=== PATIENT | female | born 1985 | race Caucasian/White ===

== ENCOUNTER 2025-03-31 14:51 | Outpatient (CLI) | payer BC, SELFPAY ==
--- NOTE | ~2025-03-31 | MM_ITS ---
EXAMINATION: MM screening nhi BI w zacarias HISTORY: Screening TECHNIQUE: Craniocaudal and mediolateral oblique 3-D tomosynthesis images were obtained and synthetic 2-D images were generated. CAD analysis was submitted and interpreted. COMPARISON: No prior mammogram is available for comparison at this institution. BREAST PARENCHYMAL COMPOSITION: The breasts are extremely dense, which lowers the sensitivity of mammography. FINDINGS: There is no evidence of suspicious mass, calcification, or architectural distortion to suggest malignancy. Asymmetry in the upper right breast, posterior depth, seen in the right MLO projection. Asymmetry in the upper left breast, middle depth, seen in the left MLO projection. In addition, there is an asymmetry in the inner left breast, middle depth, seen in the left CC projection. IMPRESSION: 1. Asymmetry in the upper right breast, posterior depth, seen in the right MLO projection. The study is incomplete. A diagnostic mammogram and a diagnostic ultrasound are recommended. 2. Asymmetry in the upper left breast, middle depth, seen in the left MLO projection. In addition, there is an asymmetry in the inner left breast, middle depth, seen in the left CC projection. The study is incomplete. A diagnostic mammogram and a diagnostic ultrasound are recommended. BI-RADS 0: Incomplete-Need additional imaging evaluation. Reviewed, dictated and finalized at location Q. IMPRESSION: 1. Asymmetry in the upper right breast, posterior depth, seen in the right MLO projection. The study is incomplete. A diagnostic mammogram and a diagnostic ul trasound are recommended. 2. Asymmetry in the upper left breast, middle depth, seen in the left MLO proje ction. In addition, there is an asymmetry in the inner left breast, middle dep th, seen in the left CC projection. The study is incomplete. A diagnostic mammo gram and a diagnostic ultrasound are recommended. BI-RADS 0: Incomplete-Need additional imaging evaluation.
--- OUTSIDE RECORDS SUMMARY | 2025-03-31 17:20 | XMS_ITS | Clinical Summary ---
Author Organization [facility] [address] Address [address] [place] [address] Care Team Providers Care Air Brush Artist Name Role Phone Marietta Gauthier MD Primary Care Provider Allergies No known active allergies Medications No known medications Active Problems No known active problems Immunizations Immunization Administration Dates Next Due Tdap 07/09/2010 Family History Medical History Relation Name Comments Other Father 2 internal bleedi ng; Cause of : internal bleeding Diabetes type II Maternal Grandfather 2 D iabetes -Type 2; Other Maternal Grandfather 2 Alive and well; Prostate cancer Maternal Grandfather 2 Ca ncer -prostate; Cause of : Cancer -prostate Other Mother 2 Alive and well; Relation Name Status Comments Father 1 (Age 58) Father 2 Maternal Grandfather 1 (Age 75) Maternal Grandfather 2 Mother 1 Alive Mother 2 Social History Tobacco Use Types Packs/Day Years Used Date Smoking Tobacco: Never Assessed Alcohol Use Standard Drinks/Week Comments Yes 0 (1 standard drink = 0.6 oz pur e alcohol) Comments Unknown Sex and Gender Information Value Date Recorded Sex Assigned at Not on file Legal Sex Female 1:51 AM HORTICULTURAL NURSERY ASSISTANT Gender Identity Not on file Sexual Orientation Not on file Obstetrics History Last Filed Vital Signs Vital Sign Reading Time Taken Comments Blood Pressure 152/98 09/04/2022 6:55 PM HORTICULTURAL NURSERY ASSISTANT Pulse 92 09/04/2022 6:55 PM HORTICULTURAL NURSERY ASSISTANT Temperature 37.2 C (99 F) 09/04/2022 6:55 PM HORTICULTURAL NURSERY ASSISTANT Respiratory Rate 16 09/04/2022 6:55 PM HORTICULTURAL NURSERY ASSISTANT Oxygen Saturation 96% 09/04/2022 6:55 PM HORTICULTURAL NURSERY ASSISTANT Inhaled Oxygen Concentration - - Weight 91.2 kg (201 lb) 09/04/2022 6:55 PM HORTICULTURAL NURSERY ASSISTANT Height 167.6 cm (5' 6) 09/04/2022 6:55 PM HORTICULTURAL NURSERY ASSISTANT Body Mass Index 32.44 09/04/2022 6:55 PM HORTICULTURAL NURSERY ASSISTANT Plan of Treatment Health Maintenance Due Date Last Done Comments Breast Cancer Screening-Mammogram 1984 Cervical Cancer Screening 1984 Depression Screening 1984 Hepatitis C Screening 1984 Varicella Vaccines (1 of 2 - 13+ 2-dose series) 1997 Hepatitis B Screening 2002 Regular Well Visit/Exam 18-64 2002 HPV Vaccines (1 - 3-dose SCD M series) 2011 Covid-19 Vaccine ( - 2024-2 6 season) 2025 05/27/2021, 09/30/2020, 09/07/2020 Influenza Vaccine (#1) 2025 7, 03/26/2017 DTaP/Tdap/Td Vaccine (3 - Td or Tdap) 03/15/2026 03/15/2016, 07/09/2010 Pneumococcal vaccine <65 Aged Out No longer eligible based on patient's age to complete this topic Insurance [facility] CHO[facility] PL[facility] PL[facility] Care Teams Air Brush Artist Relationship Specialty Start [place] [address] [id number] PCP - General 02/27/11
--- OUTSIDE RECORDS SUMMARY | 2025-03-31 17:20 | XMS_ITS | Clinical Summary ---
Author Organization [facility] Address [address] [facility] [place] [address] Phone Care Team Providers Care Doctor Of Osteopathy Name Role Phone Rosie Araujo DO Primary Care Provider [phone] Allergies No known active allergies Medications No known medications Active Problems No known active problems Immunizations Immunization Administration Dates Next Due (ADACEL/BOOSTRIX)(10 YR UP) TDAP VACCINE, 0.5ML, IM 03/15/2016 INFLUENZA VACCINE QUADRIVALENT 6 MOS UP PF IM Family History Medical History Relation Name Comments High Cholesterol Brother Diabetes Maternal Grandfather Lung Cancer Mother Other Mother COPD--emphysema Breast Cancer Neg Hx Colon Cancer Neg Hx Ovarian Cancer Neg Hx Relation Name Status Comments Brother Alive Father Maternal Grandfather Maternal Grandmother Mother Alive Paternal Grandfather Paternal Grandmother Social History Tobacco Use Types Packs/Day Years Used Date Smoking Tobacco: Never Smokeless Tobacco: Never Alcohol Use Standard Drinks/Week Comments Yes 4 (1 standard drink = 0.6 oz pur e alcohol) occasional Comments No Sex and Gender Information Value Date Recorded Sex Assigned at Not on file Legal Sex Female 1:14 PM CDT Gender Identity Not on file Sexual Orientation Not on file Last Filed Vital Signs Vital Sign Reading Time Taken Comments Blood Pressure 122/84 05/24/2019 1:15 PM MOLDED GOODS OPERATOR Pulse 75 05/24/2019 1:15 PM MOLDED GOODS OPERATOR Temperature 36.4 C (97.5 F) 05/24/2019 1:15 PM MOLDED GOODS OPERATOR Respiratory Rate - - Oxygen Saturation 98% 05/24/2019 1:15 PM MOLDED GOODS OPERATOR Inhaled Oxygen Concentration - - Weight 94.3 kg (208 lb) 05/24/2019 1:15 PM MOLDED GOODS OPERATOR w ith shoes Height 167.6 cm (5' 6) 02/15/2019 10:04 AM CDT Body Mass Index 33.57 02/15/2019 10:04 AM CDT Plan of Treatment Health Maintenance Due Date Last Done Comments HEPATITIS B VACCINES (1 of 3 - 19+ 3-dose series) 2003 HPV VACCINES (1 - 3-dose SCD M series) 2011 PAP SMEAR 01/05/2022 01/05/2019, 01/01/2016 CERVICAL CANCER SCREENING 01/06/2024 HPV/Cotest (21-29) 01/06/2024 01/05/2019, 01/01/2016 HPV/Cotest (30-65) 01/06/2024 01/05/2019, 01/01/2016 BREAST CANCER SCREENING 2024 11/22/2015 Preventative Visit- Commercial 07/07/2024 0 01/05/2019, 03/03/2018, 03/26/2017, Additional history exists INFLUENZA VACCINE (#1) 2025 04/12/2020, 2016 DTAP/TDAP/TD VACCINES (2 - T d or Tdap) 03/15/2026 03/15/2016 Procedures Procedure Name Priority Date/Time Associated Diagnosis Comments CERV/VAG CYTO AGE BASED SCREEN PAP Routine 01/05/2019 11:26 AM CDT Screening for cervical cancer MAMMO DIAGNOSTIC BILATERAL W OR WO CAD Routine 11/22/2015 10:48 AM CDT Breast lump on left side at 8 o'clock position from Last 3 Months or Most Recently Relevant to Health Maintenance Results * CERV/VAG CYTO AGE BASED SCREEN PAP (01/05/2019 11:26 AM CDT) COMMENT (PAP): SEE COMMENT 9 5:33 PM CDT [facility] Comment: This order for age-based cervical cancer and STI screening follows ACOG guidelines(PB 168, 140, QNA467). See individual assays for performing site location. CLINICAL INFORMATION Information not provided 01/12/2019 5:33 PM CDT [facility] LAST MENSTRUAL PERIOD INFORMATION NOT PROVIDED 01/12/2019 5:33 PM CDT [facility] PREV PAP: INFORMATION NOT PROVIDED 01/12/2019 5:33 PM CDT [facility] PREV BX: INFORMATION NOT PROVIDED 01/12/2019 5:33 PM CDT [facility] SOURCE Endocervix 01/12/2019 5:33 PM CDT [facility] ADEQUACY: SEE COMMENT 01/12/2019 5:33 PM CDT [facility] Comment: Satisfactory for evaluation. Endocervical/transformation zone component present. Age and/or menstrual status not provided PAP INTERP Negative for intraepithelial lesion or malignancy. 01/12/2019 5:33 PM CDT [facility] COMMENT This Pap test has been evaluated with computer assisted technology. 01/12/2019 5:33 PM CDT [facility] IMAGING NURSE: NICK SCHNEIDER(ASCP) 03/2019 5:33 PM CDT [facility] EXPLANATORY NOTE SEE COMMENT 019 5:33 PM CDT [facility] Comment: EXPLANATORY NOTE: The Pap is a screening test for cervical cancer. It is not a diagnostic test and is subject to false negative and false positive results. It is most reliable when a satisfactory sample, regularly obtained, is submitted with relevant clinical findings and history, and when the Pap result is evaluated along with historic and current clinical information. HPV E6/E7 Not Detected Not Detected 01/12/2019 5:33 PM CDT [facility] Comment: This test was performed using the APTIMA HPV Assay ([employer] This assay detects E6/E7 viral messenger RNA (mRNA) from 14 high-risk HPV types (16,18,31,33,35,39,45,51,52,56,58,59,66,68). The analytical performance characteristics of this assay have been determined by [facility]. The modifications have not been cleared or approved by the FDA. This assay has been validated pursuant to the CLIA regulations and is used for clinical purposes. Genital SWAB OF ENDOCERVIX / Unknown Collection / Unknown 01/05/2019 11:26 AM CDT 01/05/2019 7:19 PM CDT Narrative [facility] - 01/12/2019 5:33 PM CDT Performing Organization Information: Site ID: [id number] Name: [facility] Address: [address] [address] Director: Cristhian Stone D.O., MPH Site ID: [id number] [facility] Address: [address] [address] Director: Antonietta Person us Carole Gispon DO PATHOLOGY/CYTOLOGY ORDERABL ES Final Result [facility] [phone] * (ABNORMAL) MAMMO DIGITAL DIAG BILAT (11/22/2015 10:48 AM CDT) Anatomical Region Laterality Modality Breast Bilateral Mammography 11/22/2015 10:4 8 AM CDT Impressions 11/22/2015 5:00 PM CDT IMPRESSION: 1. The palpable lesion within the left breast corresponds to a solid mass and has characteristics suggestive of a fibroadenoma. Recommend ultrasound-guided core biopsy. 2. These findings were discussed with the patient on the day of examination. Narrative 11/22/2015 5:00 PM CDT BILATERAL DIGITAL DIAGNOSTIC MAMMOGRAM WITH CAD AND LEFT LIMITED BREAST ULTRASOUND DATE: 11/22/2015 10:48 AM INDICATION: Breast lump on left side at 8:00 position . TECHNIQUE: Diagnostic digital mammograms of the bilateral breasts were performed on a digital system. CAD was utilized. In addition, a targeted ultrasound of the left breast was performed. COMPARISON: None, baseline study BREAST COMPOSITION: Heterogeneously dense, which limits the sensitivity of mammography FINDINGS: Mammogram: A metallic marker indicates the site of a palpable abnormality within the lower inner quadrant of the left breast. The palpable abnormality corresponds to a circumscribed mass measuring 2.3 cm centered approximately 5.4 cm from the nipple on the MLO projection. No concerning microcalcifications are identified. The remainder of the left breast and the contralateral right breast are unremarkable. CAD was utilized. Ultrasound: Targeted ultrasound of the left breast was performed in the region of the palpable abnormality. Within the left breast at the 7:00 to 8:00 position, there is a circumscribed, homogeneous hypoechoic mass with internal blood flow measuring 1.8 x 1.0 x 2.2 cm. OVERALL ASSESSMENT: BI-RADS Category 4: Suspicious findings Procedure Note Fabricio Leyva MD - 11/22/2015 BILATERAL DIGITAL DIAGNOSTIC MAMMOGRAM WITH CAD AND LEFT LIMITED BREAST ULTRASOUND DATE: 11/22/2015 10:48 AM INDICATION: Breast lump on left side at 8:00 position . TECHNIQUE: Diagnostic digital mammograms of the bilateral breasts were performed on a digital system. CAD was utilized. In addition, a targeted ultrasound of the left breast was performed. COMPARISON: None, baseline study BREAST COMPOSITION: Heterogeneously dense, which limits the sensitivity of mammography FINDINGS: Mammogram: A metallic marker indicates the site of a palpable abnormality within the lower inner quadrant of the left breast. The palpable abnormality corresponds to a circumscribed mass measuring 2.3 cm centered approximately 5.4 cm from the nipple on the MLO projection. No concerning microcalcifications are identified. The remainder of the left breast and the contralateral right breast are unremarkable. CAD was utilized. Ultrasound: Targeted ultrasound of the left breast was performed in the region of the palpable abnormality. Within the left breast at the 7:00 to 8:00 position, there is a circumscribed, homogeneous hypoechoic mass with internal blood flow measuring 1.8 x 1.0 x 2.2 cm. OVERALL ASSESSMENT: BI-RADS Category 4: Suspicious findings IMPRESSION IMPRESSION: 1. The palpable lesion within the left breast corresponds to a solid mass and has characteristics suggestive of a fibroadenoma. Recommend ultrasound-guided core biopsy. 2. These findings were discussed with the patient on the day of examination. Susy Limon NP MAMMO ORDERABLES Final Res ult from Last 3 Months or Most Recently Relevant to Health Maintenance Insurance [facility]IONS PPO [id number] Care Teams Doctor Of Osteopathy Relationship Specialty [place] [address] [facility] [address] [place] [address] PCP - General Family Practice 03/15/16
--- OUTSIDE RECORDS SUMMARY | 2025-03-31 17:20 | XMS_ITS | Clinical Summary ---
Author Organization [facility] Address [address] [place] [id number] Care Team Providers Care Return Clerk Name Role Phone Frandy Cao MD Primary Care Provider [phone] Allergies No known active allergies Medications No known medications Immunizations Immunization Administration Dates Next Due Influenza Adult (Generic) 03/26/2017 Tdap (Generic) 03/15/2016 Family History Medical History Relation Comments Lung Cancer Mother Relation Status Comments Father Mother Social History Tobacco Use Types Packs/Day Years Used Date Smoking Tobacco: Never Smokeless Tobacco: Never Alcohol Use Standard Drinks/Week Comments Yes 0 (1 standard drink = 0.6 oz pur e alcohol) every 2 weeks Comments Unknown Sex and Gender Information Value Date Recorded Sex Assigned at Not on file Legal Sex Female 2:05 PM CDT Gender Identity Not on file Sexual Orientation Not on file Last Filed Vital Signs Vital Sign Reading Time Taken Comments Blood Pressure 120/70 04/05/2022 1:36 PM CDT Pulse 60 04/05/2022 1:36 PM CDT Temperature 36.4 C (97.5 F) 04/05/2022 1:36 PM CDT Respiratory Rate 20 04/05/2022 1:36 PM CDT Oxygen Saturation 98% 04/05/2022 1:36 PM CDT Inhaled Oxygen Concentration - - Weight 89.8 kg (198 lb) 04/05/2022 1:36 PM CDT Height - - Body Mass Index - - Plan of Treatment Health Maintenance Due Date Last Done Comments Annual Physical 1987 Hepatitis C 2002 Hepatitis B Vaccines (1 of 3 - 19+ 3-dose series) 2003 HPV Vaccines (1 - 3-dose SCD M series) 2011 Mammogram Screening 2024 COVID-19 Vaccine (4 - 2024-2 6 season) 2025 05/27/2021, 09/30/2020, 09/07/2020 Cervical Cancer Screening Pa p Smear (Age 30 to 64) Every 3 Years 04/05/2025 04/05/2022 DTaP, Tdap and Td Vaccines ( 2 - Td or Tdap) 03/15/2026 03/15/2016 Cervical Cancer Screening Pa p with HPV Testing (Age 30 to 64) Every 5 Years 04/05/2027 04/05/2022 Cervical Cancer Screening wi th HPV 04/05/2027 Meningococcal B Vaccine Aged Out No l onger eligible based on patient's age to complete this topic Meningococcal Vaccine Aged Out No ioana james eligible based on patient's age to complete this topic Pneumococcal Vaccine: Pediatrics (0 to 5 Years) and At-Risk Patients (6 to 49 Years) Aged Out No longer eligible b ased on patient's age to complete this topic RSV Immunizations Under 20 Months Aged Out No longer eligible b ased on patient's age to complete this topic Procedures Procedure Name Priority Date/Time Associated Diagnosis Comments HUMAN PAPILLOMAVIRUS, HIGH-RISK TYPES Routine 04/05/2022 12:00 PM CDT CYTOPATH CERV/VAG THIN LAYER Routine 04/05/2022 10:01 AM CDT from Last 3 Months or Most Recently Relevant to Health Maintenance Results * HUMAN PAPILLOMAVIRUS, HIGH-RISK TYPES (04/05/2022 12:00 PM CDT) SPEC DESCRIPTION CERVICAL/END OCERVICAL 04/08/2022 10:24 AM CDT [facility] HPV DNA HIGH RISK NEGATIVE NEGATIVE 04/08/2022 2:36 PM CDT [facility] Comment:SEE CYTOLOGY REPORT 04/05/2022 12:0 0 PM CDT us Flor Bianchi MD PATHOLOGY/CYTOLOGY ORDERAB LES Final Result [facility] [address] [place] [address], * Cytopath Cerv/Vag Thin Layer (04/05/2022 10:01 AM CDT) THIN PREP PAP [facility] [address] [place] [address] Department of Pathology Pathology Report CERVICAL/VAGINAL PAP SMEAR REPORT Name: SUAD CAMPO Age: 9 1985 (Age: 37) Location: [facility] Sex: F Collected Date: 04/05/2022 [facility] #: [id number] Date Received: 04/08/2022 Date Reported: 04/11/2022 Provider: FLOR CAMPBELL MD INTERPRETATION CERVICAL/ENDOCERVI MIKY: SATISFACTORY FOR EVALUATION. ENDOCERVICAL/TRANS FORMATION ZONE COMPONENT PRESENT. NEGATIVE FOR INTRAEPITHELIAL LESION OR MALIGNANCY. NEGATIVE FOR HIGH RISK HPV. The FDA approved Aptima HPV assay is an in vitro nucleic acid amplification test for the qualitative detection of E6/E7 viral messenger RNA (mRNA) from 14 high-risk types of human papillomavirus (HPV) in cervical specimens. The high-risk HPV types detected by the assay include: 16,18,31,33,35,39, 45,51,52,56,58,59, 66, and 68. Electronically Signed Out By NICK Brown (ASCP) CLINICAL HISTORY Z12.4 SCREENING PAP TEST ThinPrep Pap Test with screening HR HPV testing requested, with reflex HPV 16/18 genotyping on negative cytology, positive HR HPV Date of Last Menstrual Period: 04/01/22 Menstrual Status: Regular SPECIMEN SUBMITTED CERVICAL/ENDOCERVI MIKY Specimen Received:1 Thin Prep Vial, Image Assisted Pap (SMD) Please note: The Pap smear is not a diagnostic test. It is a screening test. Negative results on combined screening (Pap test and HPV-DNA) have a high negative predictive value (99.1-100 percent) for cervical cancer. The pap test is not effective in detecting cervical adenocarcinoma. [facility] 04/05/2022 10:0 1 AM CDT 04/08/2022 10:01 AM CDT Comment:CERVICAL/ENDOCERVICA L Flor Bianchi MD PATHOLOGY/CYTOLOGY ORDERAB LES Final Result [facility] [address] [place] [id number], from Last 3 Months or Most Recently Relevant to Health Maintenance Insurance [facility] Care Teams Return Clerk Relationship Specialty Start Date End Date Frandy Cao MD PCP - General INTERNAL MEDICINE 04/05/22
== END 2025-03-31 14:52 | disposition home or self-care (01) ==
LOC: ANHFOHIMG 14:52
PROVIDERS: PCP Emergency Medicine; Visit Provider Nurse Practitioner Obstetrics & Gynecology
DX: Z12.31 Encounter for screening mammogram for malignant neoplasm of breast (principal); R92.8 Other abnormal and inconclusive findings on diagnostic imaging of breast
CPT/HCPCS: 77063; 77067

== ENCOUNTER 2025-05-27 10:54 | Outpatient (CLI) | payer BC, SELFPAY ==
--- NOTE | ~2025-05-27 | MMUS_ITS ---
EXAMINATION: MM diagnostic nhi BI w zacarias, US breast LT limited INDICATION: 40-year old female; BI-RADS 0, callback from screening to evaluate bilateral breast asymmetries. COMPARISON: 03/31/2025 TECHNIQUE: Digital breast tomosynthesis True lateral and spot compression of BILATERAL breast were obtained. MAMMOGRAM FINDINGS: The breasts are extremely dense, which lowers the sensitivity of mammography. The asymmetry of concern in the upper right breast at posterior depth effaces on spot compression views compatible with superimposition of fibroglandular tissue. The asymmetry in the upper left breast at middle depth effaces on spot compression views compatible with superimposition of fibroglandular tissue. A mass with ill-defined margins containing few calcifications is seen in the inner left breast. LEFT BREAST ULTRASOUND FINDINGS: Targeted evaluation of the areas of concern was completed. There is an irregular markedly hypoechoic mass containing several echogenic foci that represents calcifications, and with angulated margins at 8:00, 3 cm from the nipple that measure 0.98 x 0.84 x 0.85 cm. This mass correlates to the area of mammographic finding. At 9:00, 3 cm from the nipple there is a simple cyst that measure 0.4 x 0.4 x 0.4 cm. At 10:00, 1 cm FN there is a septated cyst that measure 1.4 x 0.8 x 0.4 cm. IMPRESSION: 1. Suspicious left breast mass at 8:00 location. Recommend biopsy under ultrasound guidance. 2. Multiple benign cysts at 9:00 and 10:00 location within the left breast. RECOMMENDATION: Ultrasound-guided core biopsy of left breast mass at 8:00. BI-RADS 4, SUSPICIOUS Reviewed, dictated and finalized at location B. IMEDIA TECHNICIAN IMPRESSION: 1. Suspicious left breast mass at 8:00 location. Recommend biopsy under ultras ound guidance. 2. Multiple benign cysts at 9:00 and 10:00 location within the left breast. RECOMMENDATION: Ultrasound-guided core biopsy of left breast mass at 8:00. BI-RADS 4, SUSPICIOUS
--- OUTSIDE RECORDS SUMMARY | 2025-05-27 10:58 | XMS_ITS | Clinical Summary ---
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 Gender Identity Not on file Sexual Orientation Not on file Last Filed Vital Signs Vital Sign Reading Time Taken Comments Blood Pressure 152/98 09/04/2022 6:55 PM ELECTRIC MOTOR CONTROL ASSEMBLER Pulse 92 09/04/2022 6:55 PM ELECTRIC MOTOR CONTROL ASSEMBLER Temperature 37.2 C (99 F) 09/04/2022 6:55 PM ELECTRIC MOTOR CONTROL ASSEMBLER Respiratory Rate 16 09/04/2022 6:55 PM ELECTRIC MOTOR CONTROL ASSEMBLER Oxygen Saturation 96% 09/04/2022 6:55 PM ELECTRIC MOTOR CONTROL ASSEMBLER Inhaled Oxygen Concentration - - Weight 91.2 kg (201 lb) 09/04/2022 6:55 PM ELECTRIC MOTOR CONTROL ASSEMBLER Height 167.6 cm (5' 6) 09/04/2022 6:55 PM ELECTRIC MOTOR CONTROL ASSEMBLER Body Mass Index 32.44 09/04/2022 6:55 PM ELECTRIC MOTOR CONTROL ASSEMBLER Plan of Treatment Health Maintenance Due Date Last Done Comments Breast Cancer Screening-Mammogram 1984 Cervical Cancer Screening 1984 Depression Screening 1984 Hepatitis C Screening 1984 Varicella Vaccines (1 of 2 - 13+ 2-dose series) 1997 Hepatitis B Screening 2002 Regular Well Visit/Exam 18-64 2002 HPV Vaccines (1 - 3-dose SCD M series) 2011 Covid-19 Vaccine (4 - 2024-2 6 season) 2025 05/27/2021, 09/30/2020, 09/07/2020 Influenza Vaccine (#1) 2025 7, 03/26/2017 DTaP/Tdap/Td Vaccine (3 - Td or Tdap) 03/15/2026 03/15/2016, 07/09/2010 Pneumococcal vaccine <65 Aged Out No longer eligible based on patient's age to complete this topic Insurance [facility] HMO/PPO Address: [facility] [address] [place] [address] [facility] CHOICE PL[facility] HMO/PPO [place] [address] Care Teams Refinery Operator Helper Cracking Unit Relationship Specialty Start [place] [address] [address] [address] PCP - General 02/27/11
--- OUTSIDE RECORDS SUMMARY | 2025-05-27 10:58 | XMS_ITS | Clinical Summary ---
Author Organization [facility] Address [address] [place] [id number] Care Team Providers Care Planishing Press Operator Name Role Phone Frandy Cao MD Primary Care Provider [phone] Allergies No known active allergies Medications No [...] to 64) Every 3 Years 04/05/2025 04/05/2022 Influenza Adult (#1) 2025 03/26/2017 DTaP, Tdap and Td Vaccines ( 2 - Td or Tdap) 03/15/2026 03/15/2016 Cervical Cancer Screening Pa p with HPV Testing (Age 30 to 64) Every 5 Years 04/05/2027 04/05/2022 Cervical Cancer Screening wi th HPV 04/05/2027 Hepatitis A Vaccines Aged Out No long er eligible based on patient's age to complete this topic Meningococcal B Vaccine Aged Out No l [...] DESCRIPTION CERVICAL/END OCERVICAL 04/08/2022 10:24 AM CDT [facility] HPV DNA HIGH RISK NEGATIVE NEGATIVE 04/08/2022 2:36 PM CDT [facility] Comment:SEE CYTOLOGY REPORT 04/05/2022 12:0 0 PM CDT us Flor Bianchi MD PATHOLOGY/CYTOLOGY ORDERAB LES Final Result [facility] [address] [place] [address], * Cytopath Cerv/Vag Thin Layer (04/05/2022 10:01 AM CDT) THIN PREP PAP [facility] [address] [place] [address] Department of Pathology Pathology Report CERVICAL/VAGINAL PAP SMEAR REPORT Name: SUAD CAMPO Age: 9 1985 (Age: 37) Location: [facility] Sex: F Collected Date: 04/05/2022 [facility] #: [id number] Date Received: 04/08/2022 Date Reported: 04/11/2022 Provider: [...] is not effective in detecting cervical adenocarcinoma. [facility] 04/05/2022 10:0 1 AM CDT 04/08/2022 10:01 AM CDT Comment:CERVICAL/ENDOCERVICA L us Flor Bianchi MD PATHOLOGY/CYTOLOGY ORDERAB LES Final Result [facility] [address] [place] [address], from Last 3 Months or Most Recently Relevant to Health Maintenance Insurance [facility] Care Teams Planishing Press Operator Relationship Specialty Start Date End Date Frandy Cao MD PCP - General INTERNAL MEDICINE 04/05/22
--- OUTSIDE RECORDS SUMMARY | 2025-05-27 10:58 | XMS_ITS | Clinical Summary ---
Author Organization [facility] Address [address] [place] [address] Phone Care Team Providers Care Machine Tender Name Role Phone Rosie Araujo DO Primary Care Provider [phone] Allergies No known active allergies Medications No [...] Comments Blood Pressure 122/84 05/24/2019 1:15 PM PATENT CLERK Pulse 75 05/24/2019 1:15 PM PATENT CLERK Temperature 36.4 C (97.5 F) 05/24/2019 1:15 PM PATENT CLERK Respiratory Rate - - Oxygen Saturation 98% 05/24/2019 1:15 PM PATENT CLERK Inhaled Oxygen Concentration - - Weight 94.3 kg (208 lb) 05/24/2019 1:15 PM PATENT CLERK w ith shoes Height 167.6 cm (5' [...] STI screening follows ACOG guidelines(PB 168, 140, ANF963). See individual assays for performing site location. [...] 01/12/2019 5:33 PM CDT [facility] ELECTRIC BLANKET PACKER: NICK SCHNEIDER(ASCP) 03/2019 5:33 PM CDT [facility] [...] was performed using the APTIMA HPV Assay ([employer] This assay detects E6/E7 viral messenger RNA (mRNA) from 14 high-risk HPV types (16,18,31,33,35,39,45,51,52,56,58,59,66,68). The analytical performance characteristics of this assay have been determined by [employer]. The modifications have not been cleared or approved by the FDA. This assay has been validated pursuant to the CLIA regulations and is used for clinical purposes. Genital SWAB OF ENDOCERVIX / Unknown Collection / Unknown 01/05/2019 11:26 AM CDT 01/05/2019 7:19 PM CDT Narrative [facility] - 01/12/2019 5:33 PM CDT Performing Organization Information: Site ID: [place] Name: [email or web address] Address: [address] [place] [address] Director: Cristhian Stone D.O., MPH Site ID: [place] Name: [facility] Address: [address] [address] Director: Antonietta Person Carole Gipson DO PATHOLOGY/CYTOLOGY ORDERABL ES Final Result [facility] [phone] * (ABNORMAL) MAMMO DIGITAL DIAG BILAT (11/22/2015 [...] findings Procedure Note Fabricio Leyva MD - 05/18/2016 BILATERAL DIGITAL DIAGNOSTIC MAMMOGRAM WITH CAD AND [...] Most Recently Relevant to Health Maintenance Insurance [facility] OPTIONS PPO [id number] Care Teams Machine Tender Relationship Specialty [place] [address] [facility] [address] [place] [address] PCP - General Family Practice 03/15/16
== END 2025-05-27 10:55 | disposition home or self-care (01) ==
LOC: ANHFOHIMG 10:55
PROVIDERS: PCP Emergency Medicine; Visit Provider Nurse Practitioner Obstetrics & Gynecology
DX: R92.8 Other abnormal and inconclusive findings on diagnostic imaging of breast (principal); N63.24 Unspecified lump in the left breast, lower inner quadrant; N60.12 Diffuse cystic mastopathy of left breast
CPT/HCPCS: 76642; 77062; 77066; G0279

== ENCOUNTER 2025-06-20 09:22 | Outpatient (CLI) | payer BC, SELFPAY ==
--- NOTE | ~2025-06-20 | MMUS_ITS ---
PROCEDURE: US breast biopsy LT w image, MM post biopsy diagnostic LT CLINICAL HISTORY: 40-year-old female with suspicious left breast mass at 8:00 location presents for ultrasound-guided core needle biopsy procedure. COMPARISON: 05/27/2025 Following informed consent including risks, benefits, and possible complications, the patient was brought to the ultrasound suite. A time-out procedure was performed. A preliminary ultrasound of the left breast was performed, redemonstrating hypoechoic mass at 8:00, 3 cm FN location. The patient was prepped and draped in the usual sterile fashion. 1% lidocaine was instilled into the subcutaneous tissues. 1% lidocaine without epinephrine was injected into the deep tissues just inferior to the lesion. Approximately 15cc lidocaine was administered. A small skin mando was made. Multiple core samples were obtained with a 13-gauge vacuum assisted biopsy needle. A post biopsy Jackson Taras coil marker was placed at the biopsy site. Postprocedural mammogram of the left breast in craniocaudal and mediolateral projections reveal the post biopsy metal marker in good position. The patient tolerated the procedure well and was without immediate postprocedural complications. IMPRESSION: Successful ultrasound guided biopsy of left breast mass. A post biopsy metal marker was placed at the biopsy site, which is seen on postprocedural mammogram. The patient tolerated the procedure well without immediate postprocedure complications. The patient was given postprocedural instructions and sent home in stable condition. Biopsy pathology result pending. Reviewed, dictated and finalized at location A. OR BRAND MANAGER IMPRESSION: Successful ultrasound guided biopsy of left breast mass. A post bio psy metal marker was placed at the biopsy site, which is seen on postprocedural mammogram. The patient tolerated the procedure well without immediate postprocedure compli cations. The patient was given postprocedural instructions and sent home in sta ble condition. Biopsy pathology result pending.
--- NOTE | 2025-06-20 10:29 | S_PTH ---
PATIENT: Kelsi Campo LOC: [facility] U#:[id number] AGE/SX: 40/F ROOM: RE06/20/[address]: Sanjuana Malin MD : 1985 BED: DIS: 06/20/2025 SPEC #: [id number] RECD: 06/20/25 10:54 STATUS: ALICE REQ #: [id number] ANISH: 06/20/25 10:[address]: Sanjuana Malin DEPT: [facility] Surgical RECD BY: Lian Munson ENTERED: 06/20/25 10:55 SP TYPE: Surgical OTHR DR: Tima Bryant MD Tissues: A - Breast Biopsy Procedures: Hematoxylin and Eosin Stain Gross and Microscopic Level 4
== END 2025-06-20 09:23 | disposition home or self-care (01) ==
LOC: ANHFOHIMG 09:24
PROVIDERS: PCP Emergency Medicine; Visit Provider Surgery
DX: D24.2 Benign neoplasm of left breast (principal); R92.8 Other abnormal and inconclusive findings on diagnostic imaging of breast
CPT/HCPCS: 19083; 77065; 88305; A4648

== ENCOUNTER 2025-06-20 13:37 | Emergency (ER) | payer BC, SELFPAY ==
[2025-06-20 13:41] VITALS: BP 154/88; PULSE 80; RESP 20; TEMP 36.4; O2SAT 99
--- OUTSIDE RECORDS SUMMARY | 2025-06-20 14:54 | XMS_ITS | Clinical Summary ---
Author Organization [facility] Address [address] [place] [address] Care Team Providers Care Integrity Specialist Name Role Phone Frandy Cao MD Primary Care Provider [phone] Allergies No known active allergies Medications No [...] DESCRIPTION CERVICAL/END OCERVICAL 04/08/2022 10:24 AM CDT [facility] HPV DNA HIGH RISK NEGATIVE NEGATIVE 04/08/2022 2:36 PM CDT [facility] Comment:SEE CYTOLOGY REPORT 04/05/2022 12:0 0 PM CDT us Flor Bianchi MD PATHOLOGY/CYTOLOGY ORDERAB LES Final Result [facility] [address] [place] [address], * Cytopath Cerv/Vag Thin Layer (04/05/2022 10:01 AM CDT) THIN PREP PAP [facility] [address] [place] [address] Department of Pathology Pathology Report CERVICAL/VAGINAL PAP SMEAR REPORT Name: SUAD CAMPO Age: 9 1985 (Age: 37) Location: [facility] Sex: F Collected Date: 04/05/2022 [facility] #: [id number] Date Received: 04/08/2022 Date Reported: 04/11/2022 Provider: [...] is not effective in detecting cervical adenocarcinoma. [facility] 04/05/2022 10:0 1 AM CDT 04/08/2022 10:01 AM CDT Comment:CERVICAL/ENDOCERVICA L us Flor Bianchi MD PATHOLOGY/CYTOLOGY ORDERAB LES Final Result [facility] [address] [place] [address], from Last 3 Months or Most Recently Relevant to Health Maintenance Insurance [facility] [place] [address] Care Teams Integrity Specialist Relationship Specialty Start Date End Date Frandy Cao MD PCP - General INTERNAL MEDICINE 04/05/22
--- OUTSIDE RECORDS SUMMARY | 2025-06-20 14:54 | XMS_ITS | Clinical Summary ---
Author Organization [facility] Address [address] [place] [address] Phone Care Team Providers Care Stockroom Coordinator Name Role Phone Rosie Araujo DO Primary Care Provider [phone] Allergies No known active allergies Medications No [...] Comments Blood Pressure 122/84 05/24/2019 1:15 PM EGG AND SPICE MIXER Pulse 75 05/24/2019 1:15 PM EGG AND SPICE MIXER Temperature 36.4 C (97.5 F) 05/24/2019 1:15 PM EGG AND SPICE MIXER Respiratory Rate - - Oxygen Saturation 98% 05/24/2019 1:15 PM EGG AND SPICE MIXER Inhaled Oxygen Concentration - - Weight 94.3 kg (208 lb) 05/24/2019 1:15 PM EGG AND SPICE MIXER w ith shoes Height 167.6 cm (5' 6) 02/15/2019 10:04 AM CDT Body Mass Index 33.57 02/15/2019 10:04 AM CDT Plan of Treatment Health Maintenance Due Date Last Done Comments HEPATITIS B VACCINES (1 of 3 - 19+ 3-dose series) 2003 PAP SMEAR 01/05/2022 01/05/2019, 01/01/2016 CERVICAL CANCER SCREENING 01/06/2024 HPV/Cotest (21-29) 01/06/2024 01/05/2019, 01/01/2016 HPV/Cotest (30-65) 01/06/2024 01/05/2019, 01/01/2016 BREAST CANCER SCREENING 2024 11/22/2015 Preventative Visit- Commercial 07/07/2024 0 01/05/2019, 03/03/2018, 03/26/2017, Additional history exists INFLUENZA VACCINE (#1) 2025 04/12/2020, 2016 DTAP/TDAP/TD VACCINES (2 - T d or Tdap) 03/15/2026 03/15/2016 HPV VACCINES (No Doses Required) Completed Procedures Procedure Name Priority Date/Time Associated Diagnosis [...] STI screening follows ACOG guidelines(PB 168, 140, QMB009). See individual assays for performing site location. [...] 01/12/2019 5:33 PM CDT [facility] FIBERGLASS ROVING WINDER: NICK SCHNEIDER(ASCP) 03/2019 5:33 PM CDT [facility] [...] was performed using the APTIMA HPV Assay ([employer] This assay detects E6/E7 viral messenger RNA (mRNA) from 14 high-risk HPV types (16,18,31,33,35,39,45,51,52,56,58,59,66,68). The analytical performance characteristics of this assay have been determined by [employer]. The modifications have not been cleared or approved by the FDA. This assay has been validated pursuant to the CLIA regulations and is used for clinical purposes. Genital SWAB OF ENDOCERVIX / Unknown Collection / Unknown 01/05/2019 11:26 AM CDT 01/05/2019 7:19 PM CDT Narrative [facility] - 01/12/2019 5:33 PM CDT Performing Organization Information: Site ID: [place] Name: [facility] Address: [address] [address] Director: Cristhian Stone D.O., MPH Site ID: [place] [facility]: [facility] Address: [address] [place] [address] Director: Antonietta Person Carole Gipson DO PATHOLOGY/CYTOLOGY ORDERABL ES Final Result [facility] [phone] * (ABNORMAL) MAMMO DIGITAL DIAG BILAT (11/22/2015 [...] on the day of examination. Susy Limon BARREL WASHER MAMMO ORDERABLES Final Res ult from Last 3 Months or Most Recently Relevant to Health Maintenance Insurance [facility] OPTIONS PPO [id number] Care Teams Stockroom Coordinator Relationship Specialty [place] [address] [phone] PCP - General Family Practice 03/15/16
[2025-06-20 14:56] VITALS: O2SAT 97
[2025-06-20 14:59] VITALS: BP 143/100; PULSE 73; RESP 20; O2SAT 97
--- NOTE | 2025-06-20 15:24 | ED.ALLEREA ---
HPI - Allergic Reaction General Chief complaint: Allergic Reaction Stated complaint: allergic reaction after biopsy, ST, eyes swelling Time Seen by Provider: 06/20/25 15:04 History of Present Illness HPI narrative: 40-year-old female presents ER complaining of a 3 of pruritus to bilateral hands, swelling of her upper eyelids, and a ?tickle in her throat?. Patient states that she had a breast biopsy performed earlier today of an after her toe wound was covered with a bandage, patient began experiencing allergic reaction. Bandage was removed, symptoms began to improve. Related Data Allergies Allergy/AdvReac Type Severity Reaction Status Date / Time No Known Allergies Allergy Verified 06/20/25 13:41 Review of Systems Review of Systems: All systems reviewed & are unremarkable except as noted in HPI and below PMFSH Family History Family History Grandparent Diabetes mellitus Thyroid disorder Mother Cancer Social History Social History Smoking status: Never smoker Alcohol intake: current Alcohol use details: rarely Substance use: current Substance use type: marijuana Lack of Transportation: No Lack of Food: Never True Current Housing: I Have Housing Concerned About Future Housing: No Difficulty Paying Gas/Electric Bills: No Difficulty Paying for Meds: No Currently Unemployed: No Exam Const: General: healthy appearing and alert Nutritional Appearance: well nourished and obese Orientation/consciousness: patient oriented x3 Limitations: no limitations Eyes: Other: Edema to upper eyelids Chest: Chest palpation & inspection: normal inspection of the chest Resp: Effort & Inspection: normal respiratory effort Auscultation: clear to auscultation bilaterally Cardio: Rate: regular rate Rhythm: regular rhythm Skin: General skin exam: normal color Rashes: no rashes Wounds: no wounds Neuro: General: patient oriented x3, moves all extremities and CN's II-XI intact bilaterally Speech: normal speech Extrem: General: normal to inspection Psych: Mental Status: mental status grossly normal Affect: normal affect Attitude: cooperative Course Vital Signs Vital signs: Vital Signs Temperature 36.4 C 06/20/25 13:41 Pulse Rate 80 06/20/25 13:41 Respiratory Rate 20 06/20/25 13:41 Blood Pressure 154/88 H 06/20/25 13:41 Pulse Oximetry 99 06/20/25 13:41 Oxygen Delivery Room Air 06/20/25 13:41 Temperature 36.4 C 06/20/25 13:41 Pulse Rate 73 06/20/25 14:59 Respiratory Rate 20 06/20/25 14:59 Blood Pressure 143/100 H 06/20/25 14:59 Pulse Oximetry 97 06/20/25 14:59 Oxygen Delivery Room Air 06/20/25 14:56 MDM MDM Narrative Medical decision making narrative: In summary: 40-year-old female presents to the ER complaining of swelling to her upper eyelids, pruritic rash to the ruiz surfaces of her hands, and ?tickling? sensation in the back of her throat. Patient was given Solu-Medrol, Pepcid, Benadryl. On reexamination, symptoms had resolved. Plans discharge patient home with 5 days of prednisone. Instructed patient to take Benadryl Pepcid daily Differential Diagnosis Differential Diagnosis: Allergic reaction, urticaria, anaphylaxis, angioedema Discharge Plan Discharge Clinical Impression: Allergic reaction Patient Disposition: Home Condition: Stable Instructions: Antibiotic Form, General Allergic Reaction (ED) Patient Language: Cameroonian Prescriptions: New prednisone 50 mg tablet 50 mg PO DAILY Qty: 5 0RF Follow-up/Referrals: Tima Bryant MD [Primary Care Provider, Family Practice] Time of Disposition: 16:19
[2025-06-20] MEDS: FAMOTIDINE 20 MG/2 ML VIAL IV PUSH (15:42)
--- OUTSIDE RECORDS SUMMARY | 2025-06-20 18:05 | XMS_ITS | Clinical Summary ---
Author Organization [facility] Address [address] [place] [address] Care Team Providers Care Change Management Director Name Role Phone Frandy Cao MD Primary Care Provider [phone] Allergies No known active allergies Medications No [...] DESCRIPTION CERVICAL/END OCERVICAL 04/08/2022 10:[address] [facility] HPV DNA HIGH RISK NEGATIVE NEGATIVE 04/08/2022 2:[address] [facility] Comment:SEE CYTOLOGY REPORT 04/05/2022 12:0 0 PM CDT us Flor Bianchi MD PATHOLOGY/CYTOLOGY ORDERAB LES Final Result [facility] [address] [place] [address], * Cytopath Cerv/Vag Thin Layer (04/05/2022 10:01 AM CDT) THIN PREP PAP [facility] [address] [place] [address] Department of Pathology Pathology Report CERVICAL/VAGINAL PAP SMEAR REPORT Name: SUAD CAMPO Age: 9 1985 (Age: 37) Location: [facility] Sex: F Collected Date: 04/05/2022 [facility] #: [id number] Date Received: 04/08/2022 Date Reported: 04/11/2022 Provider: [...] is not effective in detecting cervical adenocarcinoma. [facility] 04/05/2022 10:0 1 AM CDT 04/08/2022 10:01 AM CDT Comment:CERVICAL/ENDOCERVICA L us Flor Bianchi MD PATHOLOGY/CYTOLOGY ORDERAB LES Final Result [facility] [address] [place] [address], from Last 3 Months or Most Recently Relevant to Health Maintenance Insurance [facility] Care Teams Change Management Director Relationship Specialty Start Date End Date Frandy Cao MD PCP - General INTERNAL MEDICINE 04/05/22
--- OUTSIDE RECORDS SUMMARY | 2025-06-20 18:05 | XMS_ITS | Clinical Summary ---
Author Organization [facility] Address [address] [place] [address] Phone Care Team Providers Care Territory Sales Manager Name Role Phone Rosie Araujo DO Primary Care Provider [phone] Allergies No known active allergies Medications No [...] Comments Blood Pressure 122/84 05/24/2019 1:15 PM HAT BLOCK MAKER Pulse 75 05/24/2019 1:15 PM HAT BLOCK MAKER Temperature 36.4 C (97.5 F) 05/24/2019 1:15 PM HAT BLOCK MAKER Respiratory Rate - - Oxygen Saturation 98% 05/24/2019 1:15 PM HAT BLOCK MAKER Inhaled Oxygen Concentration - - Weight 94.3 kg (208 lb) 05/24/2019 1:15 PM HAT BLOCK MAKER w ith shoes Height 167.6 cm (5' [...] STI screening follows ACOG guidelines(PB 168, 140, [id number]). See individual assays for performing site location. [...] 01/12/2019 5:33 PM CDT [facility] MEDICAL MICROBIOLOGIST: NICK SCHNEIDER(ASCP) 03/2019 5:33 PM CDT [facility] [...] was performed using the APTIMA HPV Assay ([employer] This assay detects E6/E7 viral messenger RNA (mRNA) from 14 high-risk HPV types (16,18,31,33,35,39,45,51,52,56,58,59,66,68). The analytical performance characteristics of this assay have been determined by [employer]. The modifications have not been cleared or approved by the FDA. This assay has been validated pursuant to the CLIA regulations and is used for clinical purposes. Genital SWAB OF ENDOCERVIX / Unknown Collection / Unknown 01/05/2019 11:26 AM CDT 01/05/2019 7:19 PM CDT Narrative [facility] - 01/12/2019 5:33 PM CDT Performing Organization Information: Site ID: [place] Name: [facility] Address: [address] [address] Director: Cristhian Stone D.O., MPH Site ID: [place] Name: [facility] Address: [address] [place] [address] Director: Antonietta Person Carole Gipson DO PATHOLOGY/CYTOLOGY ORDERABL ES Final Result [facility] [phone] * (ABNORMAL) MAMMO DIGITAL DIAG BILAT (11/22/2015 [...] on the day of examination. Susy Limon OVER THE HORIZON TARGETING SUPERVISOR MAMMO ORDERABLES Final Res ult from Last 3 Months or Most Recently Relevant to Health Maintenance Insurance [facility] OPTIONS PPO [id number] Care Teams Territory Sales Manager Relationship Specialty [place] [address] [phone] PCP - General Family Practice 03/15/16
--- OUTSIDE RECORDS SUMMARY | 2025-06-20 18:05 | XMS_ITS | Clinical Summary ---
Author Organization [facility] [address] Address [address] [place] [phone] Care Team Providers Care Survey Questionnaire Designer Name Role Phone Marietta Gauthier MD Primary Care Provider Unava ilable Allergies No known active allergies Medications No [...] on file Legal Sex Female 1:51 AM SHIFT BOSS Gender Identity Not on file Sexual Orientation Not on file Last Filed Vital Signs Vital Sign Reading Time Taken Comments Blood Pressure 152/98 09/04/2022 6:55 PM SHIFT BOSS Pulse 92 09/04/2022 6:55 PM SHIFT BOSS Temperature 37.2 C (99 F) 09/04/2022 6:55 PM SHIFT BOSS Respiratory Rate 16 09/04/2022 6:55 PM SHIFT BOSS Oxygen Saturation 96% 09/04/2022 6:55 PM SHIFT BOSS Inhaled Oxygen Concentration - - Weight 91.2 kg (201 lb) 09/04/2022 6:55 PM SHIFT BOSS Height 167.6 cm (5' 6) 09/04/2022 6:55 PM SHIFT BOSS Body Mass Index 32.44 09/04/2022 6:55 PM SHIFT BOSS Plan of Treatment Health Maintenance Due Date [...] patient's age to complete this topic Insurance [facility] H[facility]/PPO Address: [facility] [address] [place] [address] [facility] H[facility]/PPO Address: [place] [address] Care Teams Survey Questionnaire Designer Relationship Specialty Start Date End Date Marietta Gauthier MD PCP - General 02/27/11
== END 2025-06-20 16:31 | disposition home or self-care (01) ==
PROVIDERS: Emergency Provider Nurse Practitioner Family; PCP Emergency Medicine
DX: T78.40XA Allergy, unspecified, initial encounter (principal)
CPT/HCPCS: 96374; 96375; 99284; J1200; J2919